=== PATIENT | female | born 1965 | race Caucasian/White ===

== ENCOUNTER 2016-08-04 08:38 | Emergency (ER) | payer OTHER ==
[2016-08-04 09:10] VITALS: BP 114/78
[2016-08-04] MEDS ORDERED: Bacitracin/Neomycin/Polymyxin B Oint 0.9 GM U/D Packet ONE (09:16)
--- NOTE | 2016-08-04 09:40 | EDM.PDOC ---
ED HPI Skin/Rash - General Chief Complaint: Laceration Stated Complaint: left index finger laceration Time Seen by Provider: 08/04/16 09:15 Source: Reports: Patient History Limitations: Reports: No limitations - History of Present Illness INITIAL COMMENTS - FREE TEXT/NARRATIVE: The patient presents from work at [employer] with complaint of laceration to her left index finger. She was opening a box with a boxcutter and accidentally cut her left index finger. She denies other injuries or complaints. She is not sure of the date of her last tetanus vaccination. - Related Data Allergies Allergy/AdvReac Type Severity Reaction Status Date / Time No Known Allergies Allergy Verified 08/04/16 09:06 Home Meds: Ambulatory Orders Medication Instructions Recorded Confirmed Levothyroxine Sodium [Synthroid] 200 mcg PO DAILY 08/04/16 08/04/16 Montelukast [Singulair] 10 mg PO DAILY 08/04/16 08/04/16 Multivitamin [Daily Geo] 1 tab PO DAILY 08/04/16 08/04/16 Past Medical History - Past Health History Medical/Surgical History: Denies Medical/Surgical History Social & Family History - Alcohol Use Days Per Week of Alcohol Use: 0 Number of Drinks Per Day: 0 Total Drinks Per Week: 0 - Recreational Drug Use Recreational Drug Use: No Drug Use in Last 12 Months: No ED ROS GENERAL - Review of Systems Review Of Systems: ROS reveals no pertinent complaints other than HPI. ED EXAM, SKIN/RASH Exam: See Below Exam Limited By: No limitations General Appearance: alert, WD/WN, no apparent distress Eye Exam: bilateral eye: EOMI, normal inspection, PERRL Ears: normal external exam, normal canal, hearing grossly normal, normal TMs Nose: normal inspection, normal mucosa, no blood Throat/Mouth: Normal inspection, Normal lips, Normal teeth, Normal gums, Normal oropharynx, No airway compromise Head: atraumatic, normocephalic Neck: normal inspection, supple, non-tender, full range of motion Respiratory/Chest: no respiratory distress, lungs clear, normal breath sounds, no accessory muscle use Cardiovascular: normal peripheral pulses, regular rate, rhythm, no edema, no gallop, no murmur, no rub Peripheral Pulses: 2+: radial (L), radial (R), posterior tibial (L), posterior tibial (R), dorsalis pedis (R) GI/Abdominal: normal bowel sounds, soft, non tender, no organomegaly, no distention Extremities: normal inspection, normal range of motion, non-tender, normal capillary refill Neurological: alert, oriented, CN II-XII intact, normal cognition, normal gait, normal reflexes, no motor/sensory deficits Psychiatric: normal affect, normal mood Skin: Warm, Dry, Intact, Normal color, Other (There is a 2 cm linear laceration of the left index finger with no gross contamination and slow active bleeding. The laceration extends down to superficial dermal layer. ) ED SKIN PROCEDURES - Laceration/Wound Repair Left Finger Lac/wound length in cm: 2 (Left Index Finger) Appearance: subcutaneous, linear, clean Distal NVT: neuro & vascular intact, no tendon injury Anesthetic type: local Local anesthesia - Lidocaine (Xylocaine): 1% plain Local anesthetic volume: 3cc Skin prep: providone-iodine (betadine), isopropyl alcohol (alcohol), saline, sterile drape Saline irrigation (cc's): 5 Exploration/Debridement/Repair: wound explored, explored to base Closed with: sutures Suture size: other (5-0) Suture type: nylon Sterile dressing applied: nurse Tetanus status addressed: Yes Complications: No Course - Vital Signs Last Recorded V/S: Last Vital Signs Temp 36.5 C 08/04/16 09:10 Pulse 90 08/04/16 09:10 Resp 18 08/04/16 09:10 BP 114/78 08/04/16 09:10 Pulse Ox 95 08/04/16 09:10 - Orders/Labs/Meds Meds: Medications Discontinued Medications Generic Name Dose Route Start Last Admin Trade Name Mariposa PRN Reason Stop Dose Admin Lidocaine HCl Confirm 08/04/16 08:57 Xylocaine-Mpf 1% Administered 08/04/16 08:58 Dose 5 ml .ROUTE .STK-MED ONE Neomycin/Polymyxin/Bacitracin Confirm 08/04/16 09:16 Triple Antibiotic Oint Administered 08/04/16 09:17 Dose 1 each .ROUTE .STK-MED ONE Departure - Departure Time of Disposition: 09:40 Disposition: Home, Self-Care 01 Clinical Impression: Laceration of left index finger Forms: ED Department Discharge - Assessment/Plan Assessment:: Laceration of left index finger, 2 cm, linear. Plan: 1. Wound cleansed with betadine and alcohol swabs and wound irrigated with normal saline. 2. Suture closure performed. 3. Following suture closure, antibiotic ointment applied followed by sterile Telfa and dressing. 4. Patient instructed to leave dressing dry and in place for 24 hours, then may remove and shower/wash hands and clean with mild soap but do not soak until sutures removed. 5. OTC acetaminophen 325-1,000 mg or ibuprofen 400-800 mg every 6 hours as needed for mild to moderate pain. 6. Excuse from work today 08/04/2016, may return on 08/05/2016 with 5 pound lifting restriction with left hand until sutures removed. 7. [facility]. 8. Followup with PCP DONALDO if increased pain, redness, swelling, or drainage from wound or other concerns.
[2016-08-04] MEDS ORDERED: Diphtheria,Pertussis(Acell),Tetanus Vaccine 0.5 ML SDV IM ONE (10:12)
== END 2016-08-04 10:50 | disposition home or self-care (01) ==
LOC: LL.ED 08:38
DX: S61.211A Laceration without foreign body of left index finger without damage to nail, initial encounter (principal); Z79.899 Other long term (current) drug therapy; W26.8XXA Contact with other sharp object(s), not elsewhere classified, initial encounter; Z23 Encounter for immunization; Y92.63 Factory as the place of occurrence of the external cause; Y99.0 Civilian activity done for income or pay
CPT/HCPCS: 12001; 90471; 90715; 99283

== ENCOUNTER 2017-07-03 09:48 | Emergency (ER) | payer OTHER ==
[2017-07-03 09:53] VITALS: BP 132/75
[2017-07-03] MEDS ORDERED: Sodium Chloride 0.9% 10 ML Syringe FLUSH PRN (09:53)
[2017-07-03] MEDS ORDERED: Morphine 2 MG/ML Syringe IVPUSH ONE ×2 (09:54→11:00)
[2017-07-03] MEDS ORDERED: Ondansetron 4 MG/2 ML SDV IVPUSH ONE (09:59)
[2017-07-03 10:20] LABS: CHLORIDE,CL 101 mmol/L (98-107); SODIUM,NA 136 mmol/L (136-145)
--- NOTE | 2017-07-03 10:50 | EDM.PDOC ---
ED HPI GENERAL MEDICAL PROBLEM - General Chief Complaint: Upper Extremity Injury/Pain Stated Complaint: right shoulder pain Time Seen by Provider: 07/03/17 09:50 Source of Information: Reports: Patient, Family History Limitations: Reports: No Limitations - History of Present Illness INITIAL COMMENTS - FREE TEXT/NARRATIVE: Patient is a 52-year-old who was seen in the ER with chief complaint of right shoulder pain patient states that she was at work one for her break and slipped on the ice in the parking lot patient was brought in by ambulance with shoulder pain right stated that she first fell hitting her elbow but the pain was mainly in the shoulder x-rays obtained reveal right shoulder compression fracture Onset: Sudden Duration: Hour(s):, Constant Location: Reports: Upper Extremity, Right Quality: Reports: Sharp Severity: Moderate Worsens with: Reports: Movement Context: Reports: Trauma Associated Symptoms: Reports: Nausea/Vomiting Right Shoulder Pain Score (Numeric/FACES): 10 - Related Data Allergies Allergy/AdvReac Type Severity Reaction Status Date / Time No Known Allergies Allergy Verified 07/03/17 09:53 Home Meds: Home Meds Levothyroxine Sodium [Synthroid] 200 mcg PO DAILY 08/04/16 [History] Montelukast [Singulair] 10 mg PO DAILY 08/04/16 [History] Multivitamin [Daily Geo] 1 tab PO DAILY 08/04/16 [History] Loratadine/Pseudoephedrine [Claritin-D 12 Hour] 1 tab PO Q12HR 07/03/17 [History ] Past Medical History - Past Health History Medical/Surgical History: Denies Medical/Surgical History Social & Family History - Tobacco Use Smoking Status *Q: Unknown Ever Smoked Second Hand Smoke Exposure: No - Alcohol Use Days Per Week of Alcohol Use: 0 Number of Drinks Per Day: 0 Total Drinks Per Week: 0 - Recreational Drug Use Recreational Drug Use: No Drug Use in Last 12 Months: No Review of Systems - Review of Systems Review Of Systems: See Below Constitutional: Reports: No Symptoms Eyes: Reports: No Symptoms Ears: Reports: No Symptoms Nose: Reports: No Symptoms Mouth/Throat: Reports: No Symptoms Respiratory: Reports: No Symptoms Cardiovascular: Reports: No Symptoms GI/Abdominal: Reports: No Symptoms Genitourinary: Reports: No Symptoms Musculoskeletal: Reports: Shoulder Pain Skin: Reports: No Symptoms Neurological: Reports: No Symptoms Psychiatric: Reports: No Symptoms ED EXAM, GENERAL - Physical Exam Exam: See Below Exam Limited By: Other (Right shoulder pain 8 out of 10) General Appearance: Alert, WD/WN, No Apparent Distress Ears: Normal External Exam, Normal Canal, Hearing Grossly Normal, Normal TMs Ear Exam: Bilateral Ear: Auricle Normal, Canal Normal, TM normal Nose: Normal Inspection, Normal Mucosa, No Blood Throat/Mouth: Normal Inspection, Normal Lips, Normal Teeth, Normal Gums, Normal Oropharynx, Normal Voice, No Airway Compromise Head: Atraumatic, Normocephalic Neck: Normal Inspection, Supple, Non-Tender, Full Range of Motion Respiratory/Chest: No Respiratory Distress, Decreased Breath Sounds Cardiovascular: Normal Peripheral Pulses, Regular Rate, Rhythm, No Edema, No Gallop, No JVD, No Murmur, No Rub GI/Abdominal: Normal Bowel Sounds, Soft, Non-Tender, No Organomegaly, No Distention, No Abnormal Bruit, No Mass (Female) Exam: Deferred Rectal (Female) Exam: Deferred Back Exam: Normal Inspection, Full Range of Motion, NT Extremities: Arm Pain (Right shoulder), Limited Range of Motion Neurological: Alert, Oriented, CN II-XII Intact, Normal Cognition, Normal Gait, Normal Reflexes, No Motor/Sensory Deficits Psychiatric: Normal Affect, Normal Mood Skin Exam: Warm, Dry, Intact, Normal Color, No Rash Lymphatic: No Adenopathy Course - Vital Signs Last Recorded V/S: Last Vital Signs Temp 97.4 F 07/03/17 09:49 Pulse 82 07/03/17 09:49 Resp 20 07/03/17 09:49 BP 132/75 07/03/17 09:49 Pulse Ox 93 L 07/03/17 09:49 - Orders/Labs/Meds Orders: Active Orders 24 hr Category Date Time Status Elbow Min 3V Rt [CR] Stat Exams 07/03/17 09:50 Taken Humerus Rt [CR] Stat Exams 07/03/17 09:50 Taken Shoulder Comp Rt [CR] Stat Exams 07/03/17 09:50 Taken Sodium Chloride 0.9% [Saline Flush] Med 07/03/17 09:53 Active 10 ml FLUSH ASDIRECTED PRN Saline Lock Insert [OM.PC] Stat Oth 07/03/17 09:53 Ordered Medication Orders Sodium Chloride (Saline Flush) 10 ml FLUSH ASDIRECTED PRN PRN Reason: Keep Vein Open Last Admin: 07/03/17 10:01 Dose: 10 ml Labs: Laboratory Tests 07/03/17 07/03/17 Range/Units 09:55 09:55 WBC 9.1 (4.0-10.2) K/uL RBC 4.77 (3.77-5.09) M/uL Hgb 13.9 (11.7-15.5) g/dL Hct 41.7 (34.0-46.0) % MCV 87.4 (84.0-98.0) fL MCH 29.1 (28.2-33.3) pg MCHC 33.3 (31.7-36.0) g/dL RDW 14.2 H (11.2-14.1) % Plt Count 292 (150-350) K/uL Neut % (Auto) 53.9 (45.0-80.0) % Lymph % (Auto) 33.9 (10.0-50.0) % [place] % (Auto) 8.5 (2.0-14.0) % Eos % (Auto) 2.8 (0.0-5.0) % Baso % (Auto) 0.9 (0.0-2.0) % Neut # (Auto) 4.92 (1.40-7.00) K/uL Lymph # (Auto) 3.10 (0.50-3.50) K/uL [place] # (Auto) 0.78 (0.00-1.00) K/uL Eos # (Auto) 0.26 (0.00-0.50) K/uL Baso # (Auto) 0.08 (0.00-0.20) K/uL Sodium 136 (136-145) mmol/L Potassium 3.5 (3.5-5.1) mmol/L Chloride 101 (98-107) mmol/L Carbon Dioxide 26.2 (21.0-32.0) mmol/L BUN 11 (7-18) mg/dL Creatinine 0.71 (0.51-1.17) mg/dL Est Cr Clr Drug Dosing 112.83 mL/min Estimated GFR (MDRD) > 60 mL/min Glucose 132 H (74-106) mg/dL Calcium 8.8 (8.5-10.1) mg/dL Meds: Medications Generic Name Dose Route Start Last Admin Trade Name Tiagoq PRN Reason Stop Dose Admin Sodium Chloride 10 ml 07/03/17 09:53 07/03/17 10:01 Saline Flush FLUSH 10 ml ASDIRECTED PRN Administration Keep Vein Open Discontinued Medications Generic Name Dose Route Start Last Admin Trade Name Tiagoq PRN Reason Stop Dose Admin Morphine Sulfate 2 mg 07/03/17 09:54 07/03/17 09:59 Morphine IVPUSH 07/03/17 09:55 2 mg ONETIME ONE Administration Ondansetron HCl 4 mg 07/03/17 09:59 07/03/17 10:01 Zofran IVPUSH 07/03/17 10:00 4 mg ONETIME ONE Administration Departure - Departure Time of Disposition: 11:30 Disposition: Home, Self-Care 01 Condition: Good Clinical Impression: Fracture of humeral head, right, closed - Discharge Information Care Plan Goals: Patient doing well pain controlled x-ray revealed compression fracture right humeral head at this time patient will be placed on a sling spoke with Dr. Hooper at [facility] will see Shazia on Wednesday Shazia sent home on a sling and Narco 08/12/24 one tablet every 6 hours for pain - My Orders Last 24 Hours: My Active Orders 07/03/17 09:50 Elbow Min 3V Rt [CR] Stat Humerus Rt [CR] Stat Shoulder Comp Rt [CR] Stat 07/03/17 09:53 Sodium Chloride 0.9% [Saline Flush] 10 ml FLUSH ASDIRECTED PRN Saline Lock Insert [OM.PC] Stat - Assessment/Plan Last 24 Hours: My Active Orders 07/03/17 09:50 Elbow Min 3V Rt [CR] Stat Humerus Rt [CR] Stat Shoulder Comp Rt [CR] Stat 07/03/17 09:53 Sodium Chloride 0.9% [Saline Flush] 10 ml FLUSH ASDIRECTED PRN Saline Lock Insert [OM.PC] Stat
== END 2017-07-03 12:00 | disposition home or self-care (01) ==
LOC: LL.ED 09:48
DX: S42.201A Unspecified fracture of upper end of right humerus, initial encounter for closed fracture (principal); Z79.899 Other long term (current) drug therapy; W00.0XXA Fall on same level due to ice and snow, initial encounter; Y92.481 Parking lot as the place of occurrence of the external cause
CPT/HCPCS: 36415; 73030; 73060; 73080; 73200; 80048; 85025; 96374; 96375; 96376; 99284; J2270; J2405; J7050

== ENCOUNTER 2020-09-01 21:16 | Emergency (ER) | payer BC ==
[2020-09-01] MEDS ORDERED: Sodium Chloride 0.9% 10 ML Syringe FLUSH PRN (21:27)
[2020-09-01] MEDS ORDERED: Ampicillin/Sulbactam Na 3 GM in Sodium Chloride 0.9% 100 ML IV ONE (21:30)
[2020-09-01 21:38] VITALS: BP 144/68; PULSE 107
[2020-09-01 21:46] LABS: PTT,PARTIAL THROMBOPLSTIN TIME 24.1 SEC (24.5-32.8)
[2020-09-01 21:47] LABS: CHLORIDE,CL 100 mmol/L (98-107); SODIUM,NA 137 mmol/L (136-145)
--- NOTE | 2020-09-01 22:10 | EDM.PDOC ---
ED HPI GENERAL MEDICAL PROBLEM - General Chief Complaint: Bite:Animal, Insect Stated Complaint: CAT BITE Time Seen by Provider: 09/01/20 21:20 Source of Information: Reports: Patient, RN History Limitations: Reports: No Limitations - History of Present Illness INITIAL COMMENTS - FREE TEXT/NARRATIVE: Pt. sustained a cat bite to thumb of R hand yesterday AM. She was seen at walk- in clinic in [place] and was started on augmentin 875mg twice daily for mild cellulitis. The area of swelling and erythema was outlined in ink and she was told to come to ER if the erythema got extended outside of the outline. Pt. states that she only took 1 dose of the medication yesterday and took a second dose this AM. She states that the erythema has extended outside of this outline so she called the ER and was instructed to come to ER. Pt. states that she has not been experiencing significant increase in discomfort. Denies any fever, chills, lightheadedness, nausea, vomiting or other worrisome signs/symptoms. Pt. is a smoker. She states that she is able to express a small amount of drainage from the bite. Onset Date: 08/31/20 Location: Reports: Upper Extremity, Right - Related Data Allergies Allergy/AdvReac Type Severity Reaction Status Date / Time No Known Allergies Allergy Verified 09/01/20 21:41 Home Meds: Home Meds Levothyroxine Sodium [Synthroid] 200 mcg PO DAILY 08/04/16 [History] Montelukast [Singulair] 10 mg PO DAILY 08/04/16 [History] Multivitamin [Daily Geo] 1 tab PO DAILY 08/04/16 [History] Loratadine/Pseudoephedrine [Claritin-D 12 Hour] 1 tab PO Q12HR 07/03/17 [History] Past Medical History - Past Health History Medical/Surgical History: Denies Medical/Surgical History Musculoskeletal History: Reports: Other (See Below) Other Musculoskeletal History: right shoulder fracture, 07/03/2017 - Infectious Disease History Infectious Disease History: Reports: Chicken Pox Social & Family History - Tobacco Use Tobacco Use Status *Q: Current Every Day Tobacco User Years of Tobacco use: 30 Packs/Tins Daily: 1 Used Tobacco, but Quit: No - Caffeine Use Caffeine Use: Reports: Coffee, Soda ED ROS GENERAL - Review of Systems Review Of Systems: See Below Constitutional: Reports: No Symptoms HEENT: Reports: No Symptoms Respiratory: Reports: No Symptoms Cardiovascular: Reports: No Symptoms Endocrine: Reports: No Symptoms GI/Abdominal: Reports: No Symptoms : Reports: No Symptoms Musculoskeletal: Reports: Hand Pain, Other (please see HPI) Skin: Reports: Erythema, Wound Neurological: Reports: No Symptoms Psychiatric: Reports: No Symptoms Hematologic/Lymphatic: Reports: No Symptoms Immunologic: Reports: No Symptoms ED EXAM, ANIMAL BITE - Physical Exam Exam: See Below Exam Limited By: No Limitations General Appearance: Alert, WD/WN, No Apparent Distress Respiratory/Chest: No Respiratory Distress, Lungs Clear, Normal Breath Sounds, No Accessory Muscle Use, Chest Non-Tender Cardiovascular: Normal Peripheral Pulses, Regular Rate, Rhythm, No Edema, No Gallop, No JVD, No Murmur, No Rub. No: Diastolic Murmur, Systolic Murmur Extremities: Normal Range of Motion (ROM is preserved. There does not appear to be an extension into the joint spaces. Pt. does not report significant discomfort with flexion/extension of digit.), Normal Capillary Refill, Increased Warmth (Digit is warmer to touch than other digits.), Redness (Erythema extends well past horacio placed yesterday in streaking fashion running up R wrist/forearm.), Other (Edema, erythema noted to R thumb. There is a subcentimeter laceration/puncture wound to dorsum of thumb between IP and MCP joints.) Neurological: Alert, Oriented, CN II-XII Intact, Normal Cognition, Normal Gait, Normal Reflexes, No Motor/Sensory Deficits Lymphatic: No Adenopathy Course - Vital Signs Last Recorded V/S: Last Vital Signs Temp 36.9 C 09/01/20 21:36 Pulse 107 H 09/01/20 21:36 Resp 14 09/01/20 21:36 BP 144/68 H 09/01/20 21:36 Pulse Ox 94 L 09/01/20 21:36 - Orders/Labs/Meds Orders: Active Orders 24 hr Category Date Time Status Peripheral IV Care [RC] . DIRECTED Care 09/01/20 21:28 Ordered CULTURE WOUND [RM] Stat Lab 09/01/20 21:43 Ordered Ampicillin/Sulbactam Na [Unasyn] 3 gm Med 09/01/20 21:30 Ordered Sodium Chloride 0.9% [Normal Saline] 100 ml IV ONETIME Sodium Chloride 0.9% [Saline Flush] Med 09/01/20 21:27 Ordered 10 ml FLUSH ASDIRECTED PRN Peripheral IV Insertion Adult [OM.PC] Routine Oth 09/01/20 21:28 Ordered Medication Orders Ampicillin Sodium/Sulbactam (Sodium 3 gm/ Sodium Chloride) 100 mls @ 100 mls/hr IV ONETIME ONE Stop: 09/01/20 22:29 Last Admin: 09/01/20 21:49 Dose: 100 mls/hr Documented by: VERONICA Sodium Chloride (Sodium Chloride 0.9% 10 Ml Syringe) 10 ml FLUSH ASDIRECTED PRN PRN Reason: Keep Vein Open Labs: Laboratory Tests 09/01/20 09/01/20 09/01/20 Range/Units 21:27 21:27 21:27 WBC 10.9 H (4.0-10.2) K/uL RBC 5.03 (3.77-5.09) M/uL Hgb 14.5 (11.7-15.5) g/dL Hct 43.4 (34.0-46.0) % MCV 86.3 (84.0-98.0) fL MCH 28.8 (28.2-33.3) pg MCHC 33.4 (31.7-36.0) g/dL RDW 14.5 H (11.2-14.1) % Plt Count 261 (150-350) K/uL Neut % (Auto) 69.6 (45.0-80.0) % Lymph % (Auto) 18.2 (10.0-50.0) % [place] % (Auto) 9.4 (2.0-14.0) % Eos % (Auto) 2.3 (0.0-5.0) % Baso % (Auto) 0.5 (0.0-2.0) % Neut # (Auto) 7.59 H (1.40-7.00) K/uL Lymph # (Auto) 1.98 (0.50-3.50) K/uL [place] # (Auto) 1.03 H (0.00-1.00) K/uL Eos # (Auto) 0.25 (0.00-0.50) K/uL Baso # (Auto) 0.05 (0.00-0.20) K/uL PT 9.3 L (9.5-12.0) SEC INR 0.9 APTT 24.1 L (24.5-32.8) SEC Sodium 137 (136-145) mmol/L Potassium 3.9 (3.5-5.1) mmol/L Chloride 100 (98-107) mmol/L Carbon Dioxide 26.2 (21.0-32.0) mmol/L BUN 12 (7-18) mg/dL Creatinine 0.86 (0.51-1.17) mg/dL Est Cr Clr Drug Dosing 90.05 mL/min Estimated GFR (MDRD) > 60 mL/min Glucose 103 H (70-99) mg/dL Lactic Acid (0.4-2.0) mmol/L Calcium 8.5 (8.5-10.1) mg/dL Total Bilirubin 0.3 (0.2-1.0) mg/dL AST 15 (15-37) U/L ALT 17 (12-78) U/L Alkaline Phosphatase 120 H (46-116) IU/L C-Reactive Protein 4.3 H (<=0.9) mg/dL Total Protein 7.5 (6.4-8.2) g/dL Albumin 3.6 (3.4-5.0) g/dL 09/01/20 Range/Units 21:27 WBC (4.0-10.2) K/uL RBC (3.77-5.09) M/uL Hgb (11.7-15.5) g/dL Hct (34.0-46.0) % MCV (84.0-98.0) fL MCH (28.2-33.3) pg MCHC (31.7-36.0) g/dL RDW (11.2-14.1) % Plt Count (150-350) K/uL Neut % (Auto) (45.0-80.0) % Lymph % (Auto) (10.0-50.0) % [place] % (Auto) (2.0-14.0) % Eos % (Auto) (0.0-5.0) % Baso % (Auto) (0.0-2.0) % Neut # (Auto) (1.40-7.00) K/uL Lymph # (Auto) (0.50-3.50) K/uL [place] # (Auto) (0.00-1.00) K/uL Eos # (Auto) (0.00-0.50) K/uL Baso # (Auto) (0.00-0.20) K/uL PT (9.5-12.0) SEC INR APTT (24.5-32.8) SEC Sodium (136-145) mmol/L Potassium (3.5-5.1) mmol/L Chloride (98-107) mmol/L Carbon Dioxide (21.0-32.0) mmol/L BUN (7-18) mg/dL Creatinine (0.51-1.17) mg/dL Est Cr Clr Drug Dosing mL/min Estimated GFR (MDRD) mL/min Glucose (70-99) mg/dL Lactic Acid 1.3 (0.4-2.0) mmol/L Calcium (8.5-10.1) mg/dL Total Bilirubin (0.2-1.0) mg/dL AST (15-37) U/L ALT (12-78) U/L Alkaline Phosphatase (46-116) IU/L C-Reactive Protein (<=0.9) mg/dL Total Protein (6.4-8.2) g/dL Albumin (3.4-5.0) g/dL Meds: Medications Generic Name Dose Route Start Last Admin Trade Name Freq PRN Reason Stop Dose Admin Ampicillin Sodium/Sulbactam 100 mls @ 100 mls/hr 09/01/20 21:30 09/01/20 21:49 Sodium 3 gm/ Sodium Chloride IV 09/01/20 22:29 100 mls/hr ONETIME ONE Administration Sodium Chloride 10 ml 09/01/20 21:27 Sodium Chloride 0.9% 10 Ml Syringe FLUSH ASDIRECTED PRN Keep Vein Open - Re-Assessments/Exams Free Text/Narrative Re-Assessment/Exam: 09/01/20 22:17 IV access was established. Pt. was given 3 gm unasyn IV shortly after arrival to ER. A new ink outline was placed around the erythema. Departure - Departure Time of Disposition: 22:18 Disposition: Home, Self-Care 01 Clinical Impression: Cellulitis, Cat bite of right thumb with infection - Discharge Information Instructions: Animal Bite, Adult, [id number], Pasteurella Multocida Infection, Ampicillin; Sulbactam Injection Forms: ED Department Discharge Additional Instructions: Return to ER at 0400, 1000, and 1600 on 09/02/2020 for subsequent doses of IV antibiotics. Tylenol and ibuprofen as needed for discomfort/fever. If discomfort gets worse, we will start a stronger pain medication. Keep hand elevated above heart. Return to ER sooner if you have severe chills, lightheadedness, weakness, nausea/vomiting. Sepsis Event Note (ED) - Evaluation Sepsis Screening Result: No Definite Risk - Focused Exam Vital Signs: Vital Signs Temp Pulse Resp BP Pulse Ox 09/01/20 21:36 36.9 C 107 H 14 144/68 H 94 L - Problem List Review Problem List Initiated/Reviewed/Updated: Yes - My Orders Last 24 Hours: My Active Orders 09/01/20 21:27 Sodium Chloride 0.9% [Saline Flush] 10 ml FLUSH ASDIRECTED PRN 09/01/20 21:28 Peripheral IV Care [RC] . DIRECTED Peripheral IV Insertion Adult [OM.PC] Routine 09/01/20 21:30 Ampicillin/Sulbactam Na [Unasyn] 3 gm Sodium Chloride 0.9% [Normal Saline] 100 ml IV ONETIME 09/01/20 21:43 CULTURE WOUND [RM] Stat - Assessment/Plan Last 24 Hours: My Active Orders 09/01/20 21:27 Sodium Chloride 0.9% [Saline Flush] 10 ml FLUSH ASDIRECTED PRN 09/01/20 21:28 Peripheral IV Care [RC] . DIRECTED Peripheral IV Insertion Adult [OM.PC] Routine 09/01/20 21:30 Ampicillin/Sulbactam Na [Unasyn] 3 gm Sodium Chloride 0.9% [Normal Saline] 100 ml IV ONETIME 09/01/20 21:43 CULTURE WOUND [RM] Stat Plan: Spoke with Dr. Mar, orthopedist web production assistant at [facility] regarding this patient. He agrees with plan of care and does not feel there is a need for surgical intervention at this point. Pt. was offered admission for IV antibiotics every 6 hours but she refuses. Pt. is able to drive and care for herself and agrees to come back to ER every 6 hours for IV unasyn. Outpatient orders were written, and pt. was provided with a schedule of when to come back. She was advised to return sooner if she develops significant swelling, problems moving the digit, fever, chills, sweats, or lightheadedness. She states that the discomfort is minimal at this time so we will continue with oral NSAIDs and tylenol for pain/mild fever. The area of new erythema was outlined in blue ink. IV will be kept in place.
== END 2020-09-01 22:50 | disposition home or self-care (01) ==
LOC: LL.ED 21:16
DX: S61.051A Open bite of right thumb without damage to nail, initial encounter (principal); L03.011 Cellulitis of right finger; Z72.0 Tobacco use; W55.01XA Bitten by cat, initial encounter
CPT/HCPCS: 36415; 80053; 83605; 85025; 85610; 85730; 86140; 87070; 87205; 96365; 99283; 99283-25; J0295

== ENCOUNTER 2022-03-16 15:03 | Emergency (ER) | payer OTHER, BC ==
[2022-03-16 17:14] VITALS: BP 124/74; PULSE 84
== END 2022-03-16 16:15 | disposition home or self-care (01) ==
LOC: LL.ED 15:03
DX: S82.045A Nondisplaced comminuted fracture of left patella, initial encounter for closed fracture (principal); E03.9 Hypothyroidism, unspecified; Z72.0 Tobacco use; Z79.899 Other long term (current) drug therapy
CPT/HCPCS: 73562-LT; 99283

== ENCOUNTER 2024-11-22 15:42 | Emergency (ER) | payer BC ==
[2024-11-22 16:00] VITALS: BP 148/79; PULSE 91
== END 2024-11-22 16:30 | disposition home or self-care (01) ==
LOC: LL.ED 15:42
DX: L03.011 Cellulitis of right finger (principal); E03.9 Hypothyroidism, unspecified; Z79.890 Hormone replacement therapy; Z79.82 Long term (current) use of aspirin; Z79.899 Other long term (current) drug therapy; W54.0XXA Bitten by dog, initial encounter; Y93.89 Activity, other specified
CPT/HCPCS: 99283